=== PATIENT | male | born 1980 | race Caucasian/White ===

== ENCOUNTER 2020-05-16 17:52 | Emergency (ER) | payer SELFPAY ==
--- NOTE | 2020-05-16 | ECG_ITS ---
Test Reason : CP Blood Pressure : / mmHG Vent. Rate : 067 BPM Atrial Rate : 067 BPM P-R Int : 138 ms QRS Dur : 086 ms QT Int : 392 ms P-R-T Axes : 068 063 036 degrees QTc Int : 414 ms Normal sinus rhythm Normal ECG When compared with ECG of 27-APR-2005 10:57, No significant change was found Referred By: Generic ED Physician Electronically Signed By:MANUEL MACKAY MD
[2020-05-16 18:16] VITALS: BP 150/82; PULSE 69; RESP 18; TEMP 36.6; O2SAT 98; BMI 25.7
[2020-05-16 20:46] LABS: MANUAL DIFF FLAG NO
[2020-05-16 20:48] LABS: Basophils Percent Auto 0.3 % (0-2); Eosinophils Absolute Auto 0.3 X10*3/uL (0.0-0.4); Eosinophils Percent Auto 2.6 % (0-4); Hematocrit 41.7 % (42-52); Hemoglobin 14.4 g/dl (14.0-18.0); Imm Gran Abs Auto 0.02 X10*3/uL (0.00-0.03); Imm Gran Pct Auto 0.2 % (0.0-0.4); Lymphocytes Absolute Auto 3.2 X10*3/uL (1.2-4.9); Lymphocytes Percent Auto 33.5 % (20-40); Mean Corpuscular HGB Conc 34.5 g/dl (31.0-36.0); Mean Corpuscular Hemoglobin 31.2 pg (27.0-33.0); Mean Corpuscular Volume 90.3 fL (80-98); Monocytes Absolute Auto 0.6 X10*3/uL (0.1-1.2); Monocytes Percent Auto 6.5 % (2-11); Neutrophils Absolute Auto 5.4 X10*3/uL (2.0-8.3); Neutrophils Percent Auto 56.9 % (45-73); Platelet Count 258 X10*3/uL (160-400); Red Blood Count 4.62 X10*6/uL (4.60-5.80); Red Cell Distribution Width 12.6 % (11.0-16.0); White Blood Count 9.5 X10*3/uL (4.8-10.8)
[2020-05-16 21:09] LABS: Alanine Aminotransferase 12 U/L (0-40); Albumin Level 4.3 g/dL (3.5-5.0); Alkaline Phosphatase 64 U/L (39-117); Anion Gap 10 (12-20); Aspartate Amino Transferase 18 U/L (5-37); Bilirubin Total 0.2 mg/dL (0.0-1.0); Blood Urea Nitrogen 19 mg/dL (9-16); Calcium 9.8 mg/dL (8.4-10.2); Carbon Dioxide 29 mmol/L (22-29); Chloride 103 mmol/L (96-108); Creatinine Clr Calc Pharmacy 101.6; Estimated Glomerular Filt Rate > 60; Glucose Random 103 mg/dL (60-115); Sodium 138 mmol/L (135-145); Total Protein 7.1 g/dL (6.5-8.0)
[2020-05-16 21:15] LABS: Troponin-I High Sensitivity < 3.5 ng/L (<3.5-35.0)
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
--- NOTE | 2020-05-16 23:35 | XR_ITS ---
EXAMINATION: CHEST 1 VIEW CLINICAL INFORMATION: Chest pain. COMPARISON: None. TECHNIQUE: An AP view of the chest is provided. FINDINGS: The cardiac silhouette is not enlarged. The mediastinal and hilar contours are unremarkable. There are neither pleural effusions nor pneumothoraces. There are no consolidations. The osseous structures are unremarkable. XR/XR chest 1V IMPRESSION: No evidence for acute disease.
[2020-05-16 23:54] VITALS: BP 130/99; PULSE 71; RESP 18; O2SAT 100
== END 2020-05-17 00:45 | disposition home or self-care (01) ==
PROVIDERS: Emergency Provider Internal Medicine
DX: R07.9 Chest pain, unspecified (principal); F17.200 Nicotine dependence, unspecified, uncomplicated; Z71.6 Tobacco abuse counseling; F12.90 Cannabis use, unspecified, uncomplicated
CPT/HCPCS: 36415; 71045; 80053; 84484; 85025; 93005; 99284

== ENCOUNTER 2020-06-18 14:17 | Emergency (ER) | payer SELFPAY ==
[2020-06-18 14:27] VITALS: BP 128/86; PULSE 77; RESP 16; TEMP 36.9; O2SAT 99; BMI 25.7
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
== END 2020-06-18 14:53 | disposition home or self-care (01) ==
PROVIDERS: Emergency Provider Internal Medicine; PCP Internal Medicine
DX: K04.7 Periapical abscess without sinus (principal)
CPT/HCPCS: 99283

== ENCOUNTER 2021-07-31 16:51 | Emergency (ER) | payer SELFPAY ==
--- NOTE | ~2021-07-31 | XR_ITS ---
EXAMINATION: XR HAND, LEFT CLINICAL INFORMATION: Pain in the left thumb COMPARISON: None TECHNIQUE: PA, lateral, and oblique views of the left hand. FINDINGS: The bones and soft tissues are normal. No fracture. Alignment is anatomic. Joint spaces are maintained. No erosions or soft tissue calcifications. XR/XR hand LT min 3V IMPRESSION: Normal left hand.
[2021-07-31 17:30] VITALS: BP 141/74; PULSE 71; RESP 18; TEMP 36.9; O2SAT 98; BMI 27.1
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
== END 2021-07-31 20:46 | disposition home or self-care (01) ==
PROVIDERS: Emergency Provider Internal Medicine
DX: S63.622A Sprain of interphalangeal joint of left thumb, initial encounter (principal); W50.1XXA Accidental kick by another person, initial encounter; Y93.9 Activity, unspecified; Y92.9 Unspecified place or not applicable; Y99.9 Unspecified external cause status
CPT/HCPCS: 73130; 99283

== ENCOUNTER 2022-01-20 15:50 | Emergency (ER) | payer OTHER, SELFPAY ==
--- NOTE | ~2022-01-20 | XR_ITS ---
EXAMINATION: XR FOOT, RIGHT CLINICAL INFORMATION: Pain and swelling. Vivian fish thinning at each on Friday COMPARISON: None TECHNIQUE: AP, lateral, and oblique views of the right foot. FINDINGS: No fracture or dislocation. Mild soft tissue swelling along the dorsal aspect of the foot. No tracking soft tissue gas. Joint spaces are maintained. Lisfranc alignment is normal. 2 mm fragmented linear radiodense foreign body projects in the soft tissues about the distal tip of the great toe. XR/XR foot RT min 3V IMPRESSION: 1. No acute osseous injury. 2. Mild dorsal soft tissue swelling. 3. 2 mm linear fragmented radiodense foreign body projecting in the soft tissues of the distal great toe.
[2022-01-20 16:05] VITALS: BP 117/66; PULSE 65; RESP 18; TEMP 36.8; O2SAT 97; BMI 25.7
--- NOTE | 2022-01-20 17:55 | ED.SKABFB ---
HPI - Skin/Abscess/Foreign Bdy General Chief complaint: Skin/Abscess/Foreign Body Stated complaint: ?R foot infection Time Seen by Provider: 01/20/22 16:31 Source: patient Mode of arrival: ambulatory Limitations: no limitations History of Present Illness complaint: other (Jellyfish sting) Onset (ago): day(s) (4) Tetanus up to date: no Location: R foot Severity: moderate Severity scale (1-10): 6 Quality: burning, aching, constant and pruritic Pain Consistency: constant Relieving factors: none Exacerbating factors: palpation and movement Associated symptoms: denies other symptoms Treatments prior to arrival: none Related Data Previous Rx's Medication Instructions Recorded amoxicillin 875 mg-potassium 1 tab PO Q12H #14 tabs 06/18/20 clavulanate 125 mg tablet (Augmentin) doxycycline monohydrate 100 mg 100 mg PO BID 7 days #14 caps 01/20/22 capsule hydrocortisone 1 % topical cream 1 appl topical TID 5 days #28.4 01/20/22 grams prednisone 10 mg tablet 10 mg PO DAILY #63 tabs 01/20/22 Allergies Allergy/AdvReac Type Severity Reaction Status Date / Time No Known Allergies Allergy Verified 01/20/22 16:04 [No Known Allergies*] Review of Systems Review of Systems: Constitutional: No Fever, No Chills ENT/Mouth: No Ear Pain, No Hoarseness, No sore throat Eyes: No Eye Pain, No Swelling, No Redness, No Foreign Body Cardiovascular: No Chest Pain, No SOB Respiratory: No Cough, No Dyspnea Gastrointestinal: No Nausea, No Vomiting, No Diarrhea, No abdominal Pain Genitourinary: No Dysuria, No Hematuria Musculoskeletal: positive right foot pain, No Myalgias, No Joint Swelling Skin: Positive right foot vesicular lesions from a jellyfish sting, No Skin lacerations, No rash Neuro: No Weakness, No Numbness, No Paresthesias, No Loss of Consciousness, No Dizziness, No Headache Psych: No Anxiety/Panic, No Depression Heme/Lymph: no easy bruising, no Lymphadenopathy Endocrine: No Polyuria, No Polydipsia Yes all other systems are reviewed and are negative PMFSH Past Medical History Attestation statement: The following information was validated with the patient. Source: old records reviewed Medical History Vertebral fracture Social History Social History Substance Use Type: Marijuana Advance Directives: Yes Advance Directives Information Provided: No Advance Directives on File: No Physical Exam Vital Signs: Vital Signs: Last Vital Signs Temp 98.2 F 01/20/22 16:05 Pulse 65 01/20/22 16:05 Resp 18 01/20/22 16:05 BP 117/66 01/20/22 16:05 Pulse Ox 97 01/20/22 16:05 O2 Del Method 01/20/22 16:05 BMI result Body Mass Index 25.7 Appearance: Alert. Oriented X3. No acute distress. Eyes: Pupils equal, round and reactive to light. ENT: Pharynx normal. Neck: Normal inspection. Neck supple. CVS: Normal heart rate and rhythm. Pulses normal. Respiratory: No respiratory distress. Breath sounds normal. Abdomen: Soft and nontender. Skin: Linear vesicular pustular lesions consistent with jellyfish sting to right lower extremity, erythema and swelling noted. Extremities: No lower extremity edema. Gait well-balanced well coordinated. Brisk capillary refill and equal pulses. Neuro: No motor deficit. No sensory deficit. Cranial nerves 2-12 intact. Course Course Course Narrative: 41-year-old male presents for injury to his right lower extremity after being stung by jellyfish in [place] last week. There is a surge of jellyfish on [place] over the past few weeks, the [facility] box jellyfish, and the [place] see Wilmer have been migrating. Patient's injuries are consistent with a jellyfish sting suspected to be either the box or the Wil[place]. Will treat with prednisone and Benadryl at this time, labs and x-ray. X-rays are negative for acute findings. Will give prednisone taper, topical hydrocortisone ointment, and Benadryl. Updated Tdap vaccine today. Patient understands signs and symptoms indicating worsening symptoms and infection. Patient agrees to plan of care discharge home. MDM - Skin/Abscess/Foreign Bdy MDM Narrative Medical decision making narrative: Jellyfish neurotoxin exposure Differential Diagnosis Differential diagnosis: Likely urticaria, cellulitis and contact dermatitis Medical Records Attestation: I reviewed the patient's medical records. Lab Data Attestation: I reviewed the patient's lab results. Result diagrams: 01/20/22 18:41 01/20/22 18:41 Labs: Lab Results 01/20/22 01/20/22 Range/Units 18:41 18:41 WBC 9.9 (4.8-10.8) X10*3/uL RBC 4.51 L (4.60-5.80) X10*6/uL Hgb 13.6 L (14.0-18.0) g/dl Hct 39.7 L (42.0-52.0) % MCV 88.0 (80.0-98.0) fL MCH 30.2 (27.0-33.0) pg MCHC 34.3 (31.0-36.0) g/dl RDW 12.8 (11.0-16.0) % Plt Count 243 (160-400) X10*3/uL MPV 9.5 (9.4-12.4) fL Immature Gran % (Auto) 0.3 (0.0-0.4) % Neut % (Auto) 66.3 (45-73) % Lymph % (Auto) 22.5 (20-40) % [place] % (Auto) 7.5 (2-11) % Eos % (Auto) 3.0 (0-4) % Baso % (Auto) 0.4 (0-2) % Lymph # (Auto) 2.2 (1.2-4.9) X10*3/uL [place] # (Auto) 0.7 (0.1-1.2) X10*3/uL Eos # (Auto) 0.3 (0.0-0.4) X10*3/uL Baso # (Auto) 0.0 (0.0-0.2) X10*3/uL Abs Immat Gran (auto) 0.03 (0.00-0.03) X10*3/uL Absolute Neuts (auto) 6.5 (2.0-8.3) x10*3/uL Absolute Nucleated RBC 0.000 (0.0-0.012) X10*3/uL Nucleated RBC % (auto) 0.0 (0.0-0.2) /100WBC Sodium 140 (135-145) mmol/L Potassium 4.4 (3.3-5.1) mmol/L Chloride 103 (96-108) mmol/L Carbon Dioxide 27 (22-29) mmol/L Anion Gap 14 (12-20) BUN 15 (9-16) mg/dL Creatinine 0.99 (0.5-1.4) mg/dL Estim Creat Clear Calc 105.6 Estimated GFR > 60 Random Glucose 96 (60-115) mg/dL Calcium 9.1 D (8.4-10.2) mg/dL Imaging Data Foot x-ray: Attestation: I personally reviewed and interpreted this imaging study as follows: Radiologist's impression: EXAMINATION: XR FOOT, RIGHT CLINICAL INFORMATION: Pain and swelling. Vivian fish thinning at each on Friday? COMPARISON: None? TECHNIQUE: AP, lateral, and oblique views of the right foot. FINDINGS: No fracture or dislocation. Mild soft tissue swelling along the dorsal aspect of the foot. No tracking soft tissue gas. Joint spaces are maintained. Lisfranc alignment is normal. 2 mm fragmented linear radiodense foreign body projects in the soft tissues about the distal tip of the great toe.? XR/XR foot RT min 3V IMPRESSION: ? 1. No acute osseous injury. 2. Mild dorsal soft tissue swelling. 3. 2 mm linear fragmented radiodense foreign body projecting in the soft tissues of the distal great toe. Discharge Plan Discharge Clinical Impression: Cellulitis, Foreign body (FB) in soft tissue, Jellyfish sting, Onychomycosis Patient Disposition: Home, Self-Care Instructions: Soft Tissue Foreign Body (ED), Cellulitis (ED), Marine Animal Bite or Sting (ED) Additional Instructions: You were evaluated for a jellyfish sting to the right lower extremity. Please apply hydrocortisone cream 3 times a day. Take prednisone taper as directed. We gave you give 1st dose today, start medication tomorrow. Take doxycycline 100 mg twice a day for the next 7 days. Follow-up with utility bill collector Dr Cunha. Please call and request an appointment for suspected foreign body under the toenail to the right great toe, and onychomycosis with athlete's foot Return to the emergency department for any new, concerning, or worsening symptoms. Prescriptions: New hydrocortisone 1 % cream 1 appl topical TID 5 Days Qty: 28.4 0RF Rx Instructions: Dispense quantity sufficient prednisone 10 mg tablet 10 mg PO DAILY Qty: 63 0RF Rx Instructions: 60 mg p.o. daily for 3 days, 50 mg p.o. daily for 3 days, 40 mg p.o. daily for 3 days, 30 mg p.o. daily for 3 days, 20 mg p.o. daily for 3 days, 10 mg p.o. daily for 3 days then stop doxycycline monohydrate 100 mg capsule 100 mg PO BID 7 Days Qty: 14 0RF No Action amoxicillin-pot clavulanate [Augmentin] 875-125 mg tablet 1 tab PO Q12H Qty: 14 0RF Referrals: Toney Lopez [Physician] - 1 week (Soft tissue foreign body suspected to be under the toenail, onychomycosis) Interventions: ED Discharge Assessment Last Done: 01/20/22 20:34 Discharge Date/Time: 01/20/22 20:36
[2022-01-20 18:47] LABS: MANUAL DIFF FLAG NO
[2022-01-20] MEDS: diphenhydrAMINE HCL 50 MG/ML VIAL 25 MG IVPUSH (18:49)
[2022-01-20] MEDS: methylPREDNISolone Sod Succ 125 MG/2 ML VIAL IVPUSH (18:49)
[2022-01-20 19:04] LABS: Anion Gap 14 (12-20); Basophils Percent Auto 0.4 % (0-2); Blood Urea Nitrogen 15 mg/dL (9-16); Calcium 9.1 mg/dL (8.4-10.2); Carbon Dioxide 27 mmol/L (22-29); Chloride 103 mmol/L (96-108); Creatinine Clr Calc Pharmacy 105.6; Eosinophils Absolute Auto 0.3 X10*3/uL (0.0-0.4); Estimated Glomerular Filt Rate > 60; Glucose Random 96 mg/dL (60-115); Hematocrit 39.7 % (42.0-52.0); Hemoglobin 13.6 g/dl (14.0-18.0); Imm Gran Abs Auto 0.03 X10*3/uL (0.00-0.03); Imm Gran Pct Auto 0.3 % (0.0-0.4); Lymphocytes Absolute Auto 2.2 X10*3/uL (1.2-4.9); Lymphocytes Percent Auto 22.5 % (20-40); Mean Corpuscular HGB Conc 34.3 g/dl (31.0-36.0); Mean Corpuscular Hemoglobin 30.2 pg (27.0-33.0); Mean Platelet Volume 9.5 fL (9.4-12.4); Monocytes Absolute Auto 0.7 X10*3/uL (0.1-1.2); Monocytes Percent Auto 7.5 % (2-11); Neutrophils Absolute Auto 6.5 x10*3/uL (2.0-8.3); Neutrophils Percent Auto 66.3 % (45-73); Platelet Count 243 X10*3/uL (160-400); Potassium 4.4 mmol/L (3.3-5.1); Red Blood Count 4.51 X10*6/uL (4.60-5.80); Red Cell Distribution Width 12.8 % (11.0-16.0); Sodium 140 mmol/L (135-145); White Blood Count 9.9 X10*3/uL (4.8-10.8)
--- NOTE | 2022-01-20 19:07 | ECG_ITS ---
Test Reason : JELLY FISH STING Blood Pressure : / mmHG Vent. Rate : 052 BPM Atrial Rate : 052 BPM P-R Int : 146 ms QRS Dur : 086 ms QT Int : 424 ms P-R-T Axes : 055 060 036 degrees QTc Int : 394 ms Sinus bradycardia Otherwise normal ECG When compared with ECG of 16-MAY-2020 17:58, Heart rate has decreased Referred By: Kathi Lewis Electronically Signed By:MELY GRACE
== END 2022-01-20 20:36 | disposition home or self-care (01) ==
PROVIDERS: Nurse Practitioner Family; Emergency Provider Internal Medicine; PCP Internal Medicine
DX: L03.115 Cellulitis of right lower limb (principal); B35.1 Tinea unguium; T63.621A Toxic effect of contact with other jellyfish, accidental (unintentional), initial encounter; Y92.9 Unspecified place or not applicable; Z79.899 Other long term (current) drug therapy
CPT/HCPCS: 36415; 73630; 80048; 85025; 93005; 99282; 99283; J1200; J2930